=== PATIENT | female | born 1990 | race African-American/Black ===

== ENCOUNTER 2018-09-18 17:02 | Emergency (ER) | payer SELFPAY, OTHER | END 2018-09-18 23:21 | disposition home or self-care (01) | LOC: JER 17:02 ==

== ENCOUNTER 2020-07-17 15:01 | Observation (INO) | payer OTHER ==
[2020-07-17] MEDS ORDERED: ACETAMINOPHEN 325 MG TABLET (FP) PO ONE (16:03)
[2020-07-17] MEDS ORDERED: METOCLOPRAMIDE HCL INJECTION 10 MG/2 ML VIAL IVPUSH ONE (16:03)
[2020-07-17 16:08] LABS: BASO % 1.2 % (0-2.0); EOS % 1.3 % (0-4.5); HEMATOCRIT 19.3 % (32.4-45.2); LYMPH % 11.2 % (8-40); MCHC 28.4 g/dl (32.0-36.0); MEAN CELL VOLUME 55.4 fl (80-96); MEAN PLT VOLUME 9.7 fl (7.5-11.1); NEUT % 79.3 % (42.8-82.8); PLATELET COUNT 88 K/MM3 (134-434); RBC 3.49 M/mm3 (3.60-5.2); RDW 19.6 % (11.6-15.6); WHITE BLOOD COUNT 4.3 K/mm3 (4.0-10.0)
[2020-07-17 16:09] LABS: MCH 15.7 pg (25.7-33.7)
[2020-07-17] MEDS ORDERED: ACETAMINOPHEN 325 MG TABLET (FP) ONE (16:09)
[2020-07-17 16:10] LABS: HEMOGLOBIN 5.5 GM/dL (10.7-15.3)
[2020-07-17] MEDS ORDERED: METOCLOPRAMIDE HCL INJECTION 10 MG/2 ML VIAL ONE (16:10)
[2020-07-17 16:27] LABS: CALCIUM 8.8 mg/dL (8.5-10.1)
[2020-07-17 16:28] LABS: ALBUMIN 3.8 g/dl (3.4-5.0); BLOOD UREA NITROGEN 9.6 mg/dL (7-18)
[2020-07-17 16:30] LABS: ANISOCYTOSIS 3+; MACROCYTOSIS 0; OVALOCYTE 1+; PLATELET ESTIMATE DECREASED; TARGET CELLS 2+; TEAR DROP CELLS 1+
[2020-07-17 16:31] LABS: CREATININE 0.7 mg/dL (0.55-1.3)
[2020-07-17 16:33] LABS: BILIRUBIN,TOTAL 0.3 mg/dL (0.2-1); TOT PROT 7.6 g/dl (6.4-8.2)
[2020-07-17 17:17] LABS: INR 1.15 (0.83-1.09); PROTHROMBIN TIME (PATIENT) 13.8 SEC (9.7-13.0)
[2020-07-17 17:19] LABS: ACTIVATED PTT 25.4 SECONDS (25.2-36.5)
[2020-07-17 22:46] VITALS: BMI 19.9
[2020-07-18 09:19] LABS: HEMATOCRIT 25.1 % (32.4-45.2); HEMOGLOBIN 7.6 GM/dL (10.7-15.3); MCHC 30.2 g/dl (32.0-36.0); MEAN CELL VOLUME 64.3 fl (80-96); MEAN PLT VOLUME 11.1 fl (7.5-11.1); PLATELET COUNT 62 K/MM3 (134-434); RDW 30.5 % (11.6-15.6); WHITE BLOOD COUNT 3.7 K/mm3 (4.0-10.0)
[2020-07-18 09:42] LABS: ALBUMIN 3.5 g/dl (3.4-5.0); CALCIUM 8.8 mg/dL (8.5-10.1)
[2020-07-18 09:43] LABS: BLOOD UREA NITROGEN 9.6 mg/dL (7-18)
[2020-07-18 09:46] LABS: CREATININE 0.7 mg/dL (0.55-1.3)
[2020-07-18 09:47] LABS: BILIRUBIN,TOTAL 0.9 mg/dL (0.2-1); TOT PROT 6.9 g/dl (6.4-8.2)
[2020-07-18 09:53] LABS: MCH 19.4 pg (25.7-33.7)
[2020-07-18] MEDS ORDERED: FERRIC CARBOXYMALTOSE 750 MG in SODIUM CHLORIDE 250 ML IVPB ONE (10:00)
[2020-07-18 10:58] LABS: ANISOCYTOSIS 3+; MACROCYTOSIS 0; PLATELET ESTIMATE DECREASED; TARGET CELLS 1+
[2020-07-18] MEDS ORDERED: ACETAMINOPHEN 325 MG TABLET (FP) PO PRN (11:33)
[2020-07-19 08:14] LABS: HEMATOCRIT 26.2 % (32.4-45.2); HEMOGLOBIN 7.9 GM/dL (10.7-15.3); MCHC 30.2 g/dl (32.0-36.0); MEAN CELL VOLUME 64.5 fl (80-96); MEAN PLT VOLUME 9.9 fl (7.5-11.1); PLATELET COUNT 62 K/MM3 (134-434); RBC 4.06 M/mm3 (3.60-5.2); RDW 31.1 % (11.6-15.6); WHITE BLOOD COUNT 5.4 K/mm3 (4.0-10.0)
[2020-07-19 08:15] LABS: BLOOD UREA NITROGEN 7.7 mg/dL (7-18); CALCIUM 8.9 mg/dL (8.5-10.1)
[2020-07-19 08:19] LABS: CREATININE 0.7 mg/dL (0.55-1.3)
[2020-07-19 08:36] LABS: MCH 19.5 pg (25.7-33.7)
[2020-07-19 11:12] VITALS: BP 108/70; PULSE 74; TEMP 98.1
== END 2020-07-19 13:48 | disposition home or self-care (01) ==
LOC: JER 15:01 → INTOOBSV 16:13 → UNDOADMOB 16:13 → JERBED 16:13 → J4W 22:28 → JERBED 22:28 → J4W 07-18 14:17 → JERBED 07-18 14:17
PROVIDERS: ADMIT Internal Medicine; ATTEND Internal Medicine
PROC: 30233N1 Transfusion of Nonautologous Red Blood Cells into Peripheral Vein, Percutaneous Approach (ICD-10-PCS; principal; 2020-07-18)
DX: D50.9 Iron deficiency anemia, unspecified (principal); D69.6 Thrombocytopenia, unspecified; R55 Syncope and collapse; K59.00 Constipation, unspecified; Z87.42 Personal history of other diseases of the female genital tract
CPT/HCPCS: 36415; 36430; 36511; 80048; 80053; 80074; 82550; 82607; 82728; 83540; 83550; 84703; 85025; 85027; 85384; 85610; 85730; 86850; 86900; 86901; 86922; 93005; 93010; 96365; 96375; 99285-25; C9803; G0378; J1439; P9038; P9058; U0003; U0005

== ENCOUNTER 2020-07-24 08:19 | Day surgery (SDC) | payer OTHER ==
[2020-07-24] MEDS ORDERED: FERRIC CARBOXYMALTOSE 750 MG in SODIUM CHLORIDE 250 ML IVPB ONE (09:00)
[2020-07-24 14:40] VITALS: BP 96/62; PULSE 68; TEMP 98.2
== END 2020-07-24 10:00 | disposition home or self-care (01) ==
LOC: SUATTDRO 08:19 → JINFUSION 08:19
PROVIDERS: ATTEND Student in an Organized Health Care Education/Training Program
PROC: 3E033GC Introduction of Other Therapeutic Substance into Peripheral Vein, Percutaneous Approach (ICD-10-PCS; principal; 2020-07-24)
DX: D50.9 Iron deficiency anemia, unspecified (principal)
CPT/HCPCS: 96365; J1439

== ENCOUNTER 2020-08-05 13:18 | Emergency (ER) | payer OTHER ==
[2020-08-05 13:25] VITALS: BMI 19.5
[2020-08-05] MEDS ORDERED: ACETAMINOPHEN 1000 MG/100 ML VIAL (NON FORMULARY) IVPB ONE (13:49)
[2020-08-05] MEDS ORDERED: METOCLOPRAMIDE HCL INJECTION 10 MG/2 ML VIAL IVPB ONE (13:49)
[2020-08-05] MEDS ORDERED: SODIUM CHLORIDE 1,000 ML IV STA (13:49)
[2020-08-05] MEDS ORDERED: ACETAMINOPHEN INJECTION 100 ML IVPB ONE (14:07)
[2020-08-05] MEDS ORDERED: METOCLOPRAMIDE HCL INJECTION 10 MG/2 ML VIAL ONE (14:07)
[2020-08-05 14:48] LABS: HEMATOCRIT 37.3 % (32.4-45.2); HEMOGLOBIN 11.4 GM/dL (10.7-15.3); MCH 23.8 pg (25.7-33.7); MCHC 30.6 g/dl (32.0-36.0); MEAN CELL VOLUME 77.7 fl (80-96); MEAN PLT VOLUME 9.7 fl (7.5-11.1); PLATELET COUNT 249 10^3/uL (134-434); RDW 41.7 % (11.6-15.6); WHITE BLOOD COUNT 4.4 K/mm3 (4.0-10.0)
[2020-08-05 15:06] LABS: CALCIUM 9.6 mg/dL (8.5-10.1)
[2020-08-05 15:07] LABS: ALBUMIN 4.2 g/dl (3.4-5.0); BLOOD UREA NITROGEN 5.8 mg/dL (7-18)
[2020-08-05 15:10] LABS: CREATININE 0.7 mg/dL (0.55-1.3)
[2020-08-05 15:11] LABS: BILIRUBIN,TOTAL 0.4 mg/dL (0.2-1)
[2020-08-05 15:24] LABS: ANISOCYTOSIS 2+; MACROCYTOSIS 2+; PLATELET ESTIMATE NORMAL
[2020-08-05 16:03] LABS: EPI CELLS 33 /uL (0-25.1); HYALINE CASTS 2 /uL (0-3.1); URINE APPEARANCE CLEAR; URINE BACTERIA 798 /uL (0-1359); URINE BILIRUBIN NEGATIVE (NEGATIVE); URINE COLOR YELLOW; URINE GLUCOSE (UA) NEGATIVE (NEGATIVE); URINE KETONE NEGATIVE (NEGATIVE); URINE LEUK ESTERASE TRACE (NEGATIVE); URINE NITRITE NEGATIVE (NEGATIVE); URINE PROTEIN NEGATIVE (NEGATIVE); URINE RBC 7 /uL (0-23.9); URINE UROBILINOGEN 0.2 mg/dL (0.2-1.0); URINE WBC 16 /uL (0-25.8)
[2020-08-05 17:25] VITALS: BP 127/78; PULSE 78; TEMP 98
== END 2020-08-05 17:25 | disposition home or self-care (01) ==
LOC: JER 13:18
PROC: 3E033NZ Introduction of Analgesics, Hypnotics, Sedatives into Peripheral Vein, Percutaneous Approach (ICD-10-PCS; principal; 2020-08-05)
PROC: 3E033GC Introduction of Other Therapeutic Substance into Peripheral Vein, Percutaneous Approach (ICD-10-PCS; 2020-08-05)
PROC: 3E0337Z Introduction of Electrolytic and Water Balance Substance into Peripheral Vein, Percutaneous Approach (ICD-10-PCS; 2020-08-05)
DX: G43.009 Migraine without aura, not intractable, without status migrainosus (principal)
CPT/HCPCS: 36415; 80053; 81003; 84703; 85025; 86850; 86900; 86901; 87086; 99285-25; J0131

== ENCOUNTER 2021-08-16 15:30 | Emergency (ER) | payer OTHER ==
[2021-08-16 16:20] VITALS: BP 102/70; TEMP 98.9; BMI 21.1
[2021-08-16 19:17] LABS: BASO % 0.5 % (0-2.0); HEMATOCRIT 39.4 % (32.4-45.2); HEMOGLOBIN 12.7 GM/dL (10.7-15.3); LYMPH % 13.6 % (8-40); MCH 28.5 pg (25.7-33.7); MCHC 32.3 g/dl (32.0-36.0); MEAN CELL VOLUME 88.3 fl (80-96); MEAN PLT VOLUME 11.7 fl (7.5-11.1); MONO % 3.4 % (3.8-10.2); NEUT % 80.5 % (42.8-82.8); PLATELET COUNT 180 10^3/uL (134-434); RBC 4.46 M/mm3 (3.60-5.2); RDW 13.8 % (11.6-15.6)
[2021-08-16 19:20] LABS: BLOOD UREA NITROGEN 9.8 mg/dL (7-18)
[2021-08-16 19:23] LABS: CREATININE 0.7 mg/dL (0.55-1.3)
[2021-08-16 21:07] LABS: EPI CELLS 9 /uL (0-25.1); HYALINE CASTS 0 /uL (0-3.1); URINE APPEARANCE CLEAR; URINE BACTERIA 112 /uL (0-1359); URINE BILIRUBIN NEGATIVE (NEGATIVE); URINE COLOR YELLOW; URINE GLUCOSE (UA) NEGATIVE (NEGATIVE); URINE KETONE NEGATIVE (NEGATIVE); URINE LEUK ESTERASE NEGATIVE (NEGATIVE); URINE NITRITE NEGATIVE (NEGATIVE); URINE PROTEIN NEGATIVE (NEGATIVE); URINE RBC 8 /uL (0-23.9); URINE UROBILINOGEN 0.2 mg/dL (0.2-1.0); URINE WBC 17 /uL (0-25.8)
[2021-08-16 21:57] LABS: YEAST NEGATIVE (NEGATIVE)
[2021-08-16 22:47] VITALS: PULSE 73
== END 2021-08-16 22:47 | disposition home or self-care (01) ==
LOC: JERFT 15:30 → JER 15:30 → JERFT 22:47
DX: R10.13 Epigastric pain (principal)
CPT/HCPCS: 36415; 74176-TC; 80048; 81003; 84703; 85025; 87086; 87186; 99284-25

== ENCOUNTER 2024-04-07 19:27 | Emergency (ER) | payer OTHER ==
[2024-04-07 19:35] VITALS: BP 108/82; PULSE 84; RESP 18; TEMP 98.8; BMI 22.7
[2024-04-07] MEDS ORDERED: IBUPROFEN 400 MG TABLET (FP) PO ONE (20:27)
[2024-04-07] MEDS: IBUPROFEN 400 MG TABLET (FP) PO ONE (20:29)
== END 2024-04-07 21:34 | disposition home or self-care (01) ==
LOC: JER 19:27
DX: M79.661 Pain in right lower leg (principal)
CPT/HCPCS: 93971-TC; 99284-25